=== PATIENT | female | born 1950 | race Caucasian/White ===

== ENCOUNTER 2019-10-02 11:13 | Outpatient (CLI) | payer MEDICARE, SELFPAY ==
--- NOTE | 2019-10-02 11:21 | MM_ITS ---
WS: [id number] BILATERAL DIGITAL SCREENING MAMMOGRAM WITH CAD CLINICAL INFORMATION: SCREENING HISTORY: Screening mammogram. No current complaints. COMPARISON: July 08, 2017 TECHNIQUE: Bilateral CC and MLO views. FINDINGS: Fatty-replaced breasts bilaterally. No suspicious focal mass, asymmetry, calcifications, or net developer architect ural distortion. No evidence of malignancy. MM/[id number] IMPRESSION: BI-RADS: 1-Negative FOLLOW UP: 1 Year Follow-up Recommend return to annual screening mammography.
== END 2019-10-02 11:14 | disposition home or self-care (01) ==
PROVIDERS: PCP Nurse Practitioner Family; Visit Provider Nurse Practitioner Family
DX: Z12.31 Encounter for screening mammogram for malignant neoplasm of breast (principal)
CPT/HCPCS: 77067

== ENCOUNTER 2019-12-05 14:11 | Outpatient (CLI) | payer MEDICARE, SELFPAY ==
--- NOTE | 2019-12-05 14:22 | XR_ITS ---
WS: [id number] EXAM: LEFT KNEE: 3 VIEWS WEIGHTBEARING DATE OF EXAMINATION: 12/05/2019, 1433 hour COMPARISON: None. HISTORY: Patient is 69 years old with knee pain. Knee keeps giving out while walking or pivoting. FINDINGS: Overall bone density is decreased. There are minimal changes of arthritis within the knee joint. No a ppreciable joint effusion is seen. Slight arterial calcified plaque changes seen posteriorly. Extra a rticular soft tissues otherwise unremarkable. If there is concern for internal derangement MRI is juan ging modality of choice for further evaluation if clinically needed. XR/XR knee LT 3V* [id number] IMPRESSION: Decreased bone density. Minimal degenerative changes. No acute bony abnormality . See body of the report.
== END 2019-12-05 14:12 | disposition home or self-care (01) ==
LOC: RAD 14:18
PROVIDERS: PCP Nurse Practitioner Family; Visit Provider Nurse Practitioner Family
DX: M25.562 Pain in left knee (principal); R26.2 Difficulty in walking, not elsewhere classified
CPT/HCPCS: 73562

== ENCOUNTER 2019-12-12 13:19 | Outpatient (CLI) | payer MEDICARE, SELFPAY ==
--- NOTE | 2019-12-12 13:25 | MR_ITS ---
WS: [id number] MRI LEFT KNEE HISTORY: LEFT KNEE PAIN;INSTABILITY LEFT KNEE JOINT COMPARISON: 12/05/2019 Anterior cruciate ligament: Intact. Posterior cruciate ligament: Intact. Medial collateral ligament: Very small amount of fluid and increased T2 signal surrounding the MCL. T here is a partial tear involving the proximal tibial collateral ligament Posterior lateral corner structures: Intact. Medial menisci: Intrasubstance degeneration in the posterior horn but no extension to an articular petit rface. Lateral meniscus: Complex tear in the posterior horn. Abnormal signal and shape of the meniscus as it extends towards the meniscal root. There is increased signal in the blunting of the free edge and in the body of the meniscus. Anterior horn is normal. Extensor mechanism: Distal quadriceps tendon and patellar tendons are intact. Fluid and soft tissue: There is a small amount of fluid in the suprapatellar joint space. Small Junior 's cyst. Osseous and articular structures: Patellofemoral compartment: Subchondral cystic changes in the posterior patella. Osteochondral defect extends over a width of 11 mm. Medial compartment: Thinning of the cartilage. Full thickness cartilage defect measures 3 mm involvin g the femoral condyle. Lateral compartment: Mild narrowing of the joint space. Mild thinning of the cartilage. There is abno rmal signal involving the tibial plateau surface. Abnormal signal in the cartilage and extends over a width of 10 mm. This is at the same level as the abnormal signal in the posterior horn of the menisc us. MR/MR knee LT wo con* [id number] IMPRESSION: 1. Complex tear posterior horn lateral meniscus. 2. Partial tear proximal medial collateral ligament. 3. Osteochondral lesion posterior lateral surface of the patella measures 11 m m. 4. Mild narrowing of the medial and lateral compartments of the knee with mild internal derangement. 5. 3 mm cartilage defect medial femoral condyle. 6. 10 mm cartilage defect lateral tibial plateau. This corresponds to the leve l of the meniscal tear. 7. Small Junior's cyst.
== END 2019-12-12 13:20 | disposition home or self-care (01) ==
LOC: RADSHAW 13:23
PROVIDERS: PCP Nurse Practitioner Family; Visit Provider Nurse Practitioner Family
DX: M25.362 Other instability, left knee (principal); M25.562 Pain in left knee; S83.272A Complex tear of lateral meniscus, current injury, left knee, initial encounter; S83.412A Sprain of medial collateral ligament of left knee, initial encounter; M71.22 Synovial cyst of popliteal space [Baker], left knee; X58.XXXA Exposure to other specified factors, initial encounter
CPT/HCPCS: 73721

== ENCOUNTER → 2020-01-21 13:04 | Outpatient (BNVA) | payer MEDICARE, SELFPAY | PROVIDERS: PCP Nurse Practitioner Family; Visit Provider Orthopaedic Surgery | DX: Z20.828 Contact with and (suspected) exposure to other viral communicable diseases (principal) | CPT/HCPCS: 87635 ==

== ENCOUNTER 2020-01-24 07:22 | Day surgery (SDC) | payer MEDICARE, SELFPAY ==
[2020-01-23 09:47] VITALS: BMI 31.0
[2020-01-24] VITALS (11 sets, daily range): BP systolic 103–165; BP diastolic 52–86; PULSE 59–69; RESP 12–20; TEMP 36.3–36.9; O2SAT 94–98
[2020-01-24] MEDS: sodium chloride 0.9% 1,000 ML 30 ML IV (08:14)
--- NOTE | 2020-01-24 08:17 | ANES.PREANE2 ---
Pre-Anesthetic Assessment Pre-Anesthetic Assessment: Height/Weight: Height 1.73 m Weight 92.533 kg Temp Pulse Resp BP Pulse Ox 98.1 F 65 20 H 135/66 97 01/24/20 07:46 01/24/20 07:46 01/24/20 07:46 01/24/20 07:46 01/24/20 07:46 Preop Diagnosis: Left lateral meniscal Proposed Procedure: Operation Date: 01/24/20 08:55 Proposed Procedures p Knee Arthroscopy left w/lateral meniscectomy 30193 S8.207A(Left) - Jarett Barba MD Familial anesthetic complications: None Was Beta Tamir taken within 24 hours: Yes Last intake: Intake Last Liquid Date 01/23/20 Last Liquid Time 22:00 Last Solid Date 01/23/20 Last Solid Time 20:00 Social: Social History: Tobacco Exam: Pre-Anes Outpt Exam: alert, oriented x 3, clear to auscultation bilaterally and regular rate & rhythm Airway: Cervical ROM: WNL MP: 3 Dentition: Other (bridge) Pulmonary: Pulmonary: Cough (dry smoker's cough chronic) CV/HEM: CV/HEM: HTN Metabolic: Metabolic: Hyperlipidemia Anesthetic Plan: ASA status: 2 Anesthesia: General Risk of > 500 ml blood loss (7ml/kg in children): No Meds/Allergies Current Medications: Current Medications Generic Name Dose Route Start Last Admin Trade Name Freq PRN Reason Stop Dose Admin Sodium Chloride 1,000 mls @ 30 ml s/hr 01/24/20 07:45 01/24/20 08:14 Sodium Chloride 0.9% IV 01/25/20 07:44 30 mls/hr .Q24H YEIMI Administration PFSH Anesthesia PFSH: Social History Smoking and tobacco status: current some day smoker Alcohol intake: never Data Anesthesia Cardiac Studies: No Data to Display
--- NOTE | 2020-01-24 08:37 | W.PM.OPSUD ---
Surgery/Procedure H&P Update DATE OF PROCEDURE: January 24, 2020 DATE H&P PERFORMED: 01/02/20 PREOP DIAGNOSIS: Left lateral meniscal PLANNED PROCEDURE: Operation Date: 01/24/20 08:55 Proposed Procedures p Knee Arthroscopy left w/lateral meniscectomy 44963 S8.207A(Left) - Jarett Barba MD
[2020-01-24] MEDS: morphine 4 mg/mL SDV 1 mL 8 MG XX (09:09)
--- NOTE | 2020-01-24 09:48 | PM.OP ---
Operative Report Date of procedure: January 24, 2020 Pre-op Diagnosis: Left lateral meniscal Post-op diagnosis: other (Left lateral meniscal tear, chondromalacia medial femoral condyle, chondromalacia patella) Post-op Findings: As above Procedure Done: Arthroscopic left lateral meniscectomy, arthroscopic chondroplasty medial femoral condyle and patella Pathology: none sent Surgeon: Jarett Barba Anesthesia: General Complications: None Findings: Patient has a complex flap tear in the posterior third of the lateral meniscus involving approximately the central 30%. The remaining 70% seemed reasonably healthy. There was an area of full-thickness cartilage loss over the weightbearing medial femoral condyle approximately a 12 mm in diameter with exposed subchondral bone. There is central cartilaginous flaps about the patella involving perhaps a 60% of the thickness of the central patellar cartilage. The trochlea was otherwise healthy Condition: stable Disposition: PACU Procedure: The patient was taken to the operating room and given a general anesthesia. Her leg was prepped with Betadine and the knee infiltrated 30 cc of 0.5% Marcaine with epi and 10 mg of morphine. The leg was then draped in the usual fashion. A timeout was performed. The knee was then entered through the standard inferior medial and inferior lateral portal. The diagnostic portion arthroscopy was performed. Initial attention was focused on the unstable lateral meniscal tear. Utilizing an incisor shaver a large unstable central flap was debrided back. Remaining poor quality degenerative tissue was debrided with a basket. There with the rim was then cleaned up with an incisor shaver and [employer]gg [employer] Nephew Werewolf probe leaving approximately 60 to 70% of a stable meniscal rim behind. The remainder of arthroscopy in the lateral compartment was unremarkable. Attention was then focused to the medial compartment. The area of exposed subchondral bone was identified. Unstable peripheral flaps were identified circumferentially. Utilizing an incisor shaver the rim was clean debrided back to a stable rim and then cleaned up with the Gregg [employer] Nephew Werewolf probe. Central area of approximately 12 mm in diameter remain. Final attention was focused on the undersurface the patella. Initially working with the shaver and Gregg [employer] Nephew Werewolf through the medial portal unstable flaps and fissures of the central patella were debrided back. The scope was then moved to the medial portal and working through the lateral portal additional debridement accomplished. No exposed subchondral bone was identified. The knee was irrigated with saline. Portals were closed with 3-0 Prolene. Sterile dressings were applied the patient is wrapped in Paxton wrap from toe to thigh. She was extubated and taken to recovery in stable condition.
[2020-01-24] MEDS: fentaNYL 50 mcg/mL INJ 2mL IVP (10:10)
--- NOTE | 2020-01-24 10:24 | SUR.PHASEI ---
1000 PT HAS SENSATION/MOVEMENT TO L. FOOT, PEDAL PULSE PALPATED, CAP REFILL <3
--- NOTE | 2020-01-24 10:50 | ANE.PACU2 ---
Inpatient post-anesthesia follow up: Airway intact: Yes Vital signs: Temperature 97.4 F Pulse Rate 66 Respiratory Rate 16 Blood Pressure 133/76 Pulse Oximetry 94 Oxygen Delivery Me thod Room Air Oxygen Flow Rate 8 Fraction of Inspir ed Oxygen Hydration adequate: Yes Nausea and vomiting: No Pain level: 3 Mental status: Baseline
== END 2020-01-24 10:55 | disposition home or self-care (01) ==
PROVIDERS: PCP Nurse Practitioner Family; Visit Provider Orthopaedic Surgery
PROC: (CPT 29870; principal; 2020-01-24 08:55)
DX: S83.282A Other tear of lateral meniscus, current injury, left knee, initial encounter (principal); W19.XXXA Unspecified fall, initial encounter; F17.210 Nicotine dependence, cigarettes, uncomplicated; I10 Essential (primary) hypertension; E78.5 Hyperlipidemia, unspecified
CPT/HCPCS: 29881; 12345; J0690; J1100; J1885; J2270; J2405; J2704; J3010; J3490; J7030

== ENCOUNTER 2020-11-12 11:42 | Outpatient (CLI) | payer MEDICARE, SELFPAY ==
--- NOTE | 2020-11-12 11:49 | MM_ITS ---
WS: [id number] BILATERAL DIGITAL SCREENING MAMMOGRAPHY WITH CAD CLINICAL INFORMATION: SCREENING HISTORY: Screening mammogram. No current complaints. COMPARISON: October 02, 2019 TECHNIQUE: Bilateral CC and MLO views. FINDINGS: Scattered fibroglandular densities bilaterally. No suspicious focal mass, asymmetry, calcifications, or architectural distortion. No evidence of malignancy. MM/[id number] IMPRESSION: BI-RADS: 1-Negative FOLLOW UP: 1 Year Follow-up Recommend return to annual screening mammography.
== END 2020-11-12 11:43 | disposition home or self-care (01) ==
LOC: RADSHAW 11:47
PROVIDERS: PCP Nurse Practitioner Family; Visit Provider Nurse Practitioner Family
DX: Z12.31 Encounter for screening mammogram for malignant neoplasm of breast (principal)
CPT/HCPCS: 77067

== ENCOUNTER 2021-04-17 10:52 | Outpatient (CLI) | payer MEDICARE, SELFPAY ==
[2021-04-17 11:31] VITALS: BP 132/74; PULSE 77; RESP 18; TEMP 37.5; O2SAT 97; BMI 30.1
[2021-04-17 12:21] VITALS: BP 110/67; PULSE 81; RESP 16; TEMP 36.9; O2SAT 96
[2021-04-17 13:21] VITALS: BP 119/72; PULSE 70; RESP 16; TEMP 36.3; O2SAT 96
== END 2021-04-17 10:53 | disposition home or self-care (01) ==
LOC: OPS 10:56
PROVIDERS: PCP Nurse Practitioner Family; Visit Provider Nurse Practitioner Family
DX: U07.1 COVID-19 (principal)
CPT/HCPCS: 96365

== ENCOUNTER → 2022-03-04 11:34 | Outpatient (BNVA) | payer MEDICARE, SELFPAY | PROVIDERS: PCP Nurse Practitioner Family; Visit Provider Nurse Practitioner Family | DX: M25.531 Pain in right wrist (principal) | CPT/HCPCS: 73110 ==

== ENCOUNTER 2022-04-26 01:12 | Emergency (ER) | payer MEDICARE, SELFPAY ==
[2022-04-26 01:26] VITALS: BP 140/81; PULSE 76; RESP 16; TEMP 36.4; O2SAT 94; BMI 29.5
--- NOTE | 2022-04-26 02:20 | XRR_ITS ---
PROCEDURE INFORMATION: Exam: XR Left Hand Exam date and time: 04/26/2022 2:48 AM Age: 72 years old Clinical indication: Injury or trauma; Fall; Blunt trauma (contusions or hematomas); Hand; Left; Additional info: Fall, injury, swelling, bruising TECHNIQUE: Imaging protocol: Radiologic exam of the Left hand. Views: 3 or more views. Frontal Oblique Lateral COMPARISON: No relevant prior studies available. FINDINGS: Bones/joints: Comminuted left 5th/little metacarpal base fracture is seen without significant displacement. There is osteopenia. Moderate digit and thumb interphalangeal joint and thumb metacarpophalangeal joint space narrowing is seen with small osteophytes, consistent with osteoarthritic change. Some subchondral lucencies are seen. Mild carpometacarpal and remaining metacarpophalangeal joint space narrowing is seen, suggestive of osteoarthritic change. No osseous erosive changes. Soft tissues: No radiopaque foreign bodies. Mild lower hand region soft tissue swelling. Notes: Followup radiographs may be obtained for complete assessment. XR/XR hand LT min 3V* [id number] IMPRESSION: Comminuted, nondisplaced left 5th/little metacarpal base fracture, as noted above.
[2022-04-26 02:28] LABS: Basophils # 0.1 10^3/uL (0.0-0.1); Basophils % 0.4 %; Eosinophils # 0.2 10^3/uL (0.0-0.8); Eosinophils % 0.9 %; Hematocrit 46.4 % (37.0-47.0); Hemoglobin 15.7 g/dL (11.5-15.3); Lymphocytes # 1.3 10^3/uL (0.8-4.8); Lymphocytes % 8.1 %; Mean Corpuscular HGB Conc 33.8 g/dL (30.0-36.0); Mean Corpuscular Hemoglobin 31.7 pg (28.0-34.0); Mean Corpuscular Volume 93.7 fl (81-99); Mean Platelet Volume 9.7 fL (7.4-10.4); Monocytes # 0.9 10^3/uL (0.2-0.9); Monocytes % 5.9 %; Neutrophils # 13.51 10^3/uL (1.8-7.7); Neutrophils % 84.4 %; Nucleated Red Blood Cells % 0 %; Platelet Count 196 10^3/cmm (130-400); Red Blood Count 4.95 10^6/uL (4.1-5.3); Red Cell Distribution Width 12.5 % (12.1-15.1)
--- NOTE | 2022-04-26 02:29 | W.ED.SYNCOPE ---
HPI - Syncope General: Chief Complaint: Syncope Stated Complaint: SYNCOPE/FALL Time Seen by Provider: 04/26/22 01:25 Source: patient Mode of arrival: EMS Limitations: no limitations History of Present Illness: Patient presents to the emergency department today accompanied by her for evaluation treatment of various issues. Patient states that this evening she began having an upset stomach and indicated she had a large episode of diarrhea. She states she went to bed but approximately 1 hour later noticed her stomach was again starting to feel upset and went to the bathroom. She states she had another episode of diarrhea there and started feel nauseated like she was going to vomit. She states she got up and was walking out of her bathroom when she had a syncopal episode, falling forward, and impacting her forehead on the hardwood floor. Patient states that she came to but states she felt so poorly that she did not even try to get up and had an episode of vomiting on the floor. Patient denies eating anything different. She did take some of her medications slightly differently-at different times than normal, tonight. No other similarly ill at home. Patient also complains of some left hand pain from falling. Patient is not on a blood thinner. She has not had any blurred vision. She denies any epistaxis from her fall. She indicates tenderness of her forehead but no significant headache. Associated symptoms: Reports nausea; Deny abdominal pain or headache(s) (forehead contusion) Review of Systems General: Reports: 10 or more systems reviewed and unremarkable except in HPI and below GI: Reports: nausea, vomiting, diarrhea and GI cramping; Denies: abdominal pain Neuro: Reports: other (syncope x1); Denies: headache(s) (forehead contusion), numbness in extremities, weakness in extremities or Slurred speech present [facility] PFSH: Social History Smoking and tobacco status: current some day smoker Alcohol intake: never Physical Exam Const: COMMON NORMALS: no acute distress, patient oriented x3 and alert HENMT: COMMON NORMALS: normocephalic, hearing grossly normal bilaterally, Normal external nose present (no epistaxis) and moist oral mucous membranes; head/scalp not atraumatic (forehead contusion with mild erythema. No swelling, no hematoma, no lac) HEAD & SCALP: normocephalic; not atraumatic (forehead contusion with mild erythema. No swelling, no hematoma, no lac) NOSE: Normal external nose present (no epistaxis) Eye: COMMON NORMALS: Equal, round and reactive pupils present, EOMs intact bilaterally and conjunctivae normal CONJUNCTIVA: Yes conjunctivae normal PUPIL: Yes Equal, round and reactive pupils present Neck/C-Spine: COMMON NORMALS: full ROM and no JVD Lymph: LYMPHATIC: no lymphadenopathy noted Resp: COMMON NORMALS: normal respiratory effort, No retractions, No use of accessory muscles and clear to auscultation bilaterally AUSCULTATION: clear to auscultation bilaterally Cardio: COMMON NORMALS: no JVD, regular rate and regular rhythm RATE: regular rate RHYTHM: regular rhythm GI: OTHER: Hyperactive bowel sounds in all 4 quadrants. Abdomen is soft without rigidity, guarding, or specific area of tenderness. : COMMON NORMALS: Yes no CVA tenderness BLADDER/KIDNEY EXAM: Yes no CVA tenderness Back/Pelvis: COMMON NORMALS: no CVA tenderness, no thoracic nor lumbar tenderness and thoraco-lumbar ROM normal Extremity: COMMON NORMALS: normal to inspection, full ROM and capillary refill normal NARRATIVE EXTREMITY EXAM: Patient has an area of bruising and swelling noted to the left medial dorsum of the hand. It is tender to palpation. Patient demonstrates flexion extension of all the fingers on the left hand. Neuro: COMMON NORMALS: patient oriented x3 SENSORIUM/ORIENTATION: Yes alert Psych: COMMON NORMALS: mental status grossly normal, Normal thought process present, cooperative, normal affect and activity/motor behavior normal THOUGHT PROCESS: Normal thought process present Skin: COMMON NORMALS: no rashes or lesions noted and no wounds GENERAL SKIN EXAM: no rashes or lesions noted Course Vital Signs: Vital signs: Vital Signs Temperature 97.6 F 04/26/22 01:26 Pulse Rate 78 04/26/22 03:02 Respiratory Rate 17 04/26/22 03:02 Blood Pressure 153/76 04/26/22 03:02 Pulse Oximetry 95 04/26/22 03:02 Oxygen Delivery Me thod 04/26/22 01:26 MDM - Syncope Medical Decision Making Patient presents via EMS for episode of syncope after diarrhea x2 this evening. Patient has no specific abdominal pains and has no signs of any acute abdomen. Patient had nausea with the sensation to need to vomit prior to syncope and hitting her head. Patient admitted she went ahead and vomited on the floor after she had fallen because she felt too poorly to get up. Patient has no acute neurological deficits from hitting her head. Syncopal episode was prior to her hitting her head. Patient's hand does show bruising and swelling with an x-ray that appears to have a proximal fifth metacarpal fracture. Patient has a minimally elevated lipase and a slightly elevated white blood cell count but, could be secondary to her episode of vomiting. Urinalysis was also otherwise unremarkable-all imaging and lab work reviewed by Dr. Guardado who agreed with hydration here in the ER and at home treatment with Bentyl and Zofran, patient can discharge for continued fluid hydration at home. Patient also needs follow-up with orthopedics for the hand fracture which a request to case management was initiated tonight as well. Patient was given instructions for fluid and diet for the next few days. Patient was given strict return precautions for concerns of dehydration or change or worsening of abdominal pains or, any recurrence of syncopal episodes. Differential Diagnosis Likely syncope due to orthostatic hypotension, vasovagal syncope and dehydration Lab Data 04/26/22 02:23 04/26/22 02:23 Radiology Impressions Hand X-Ray 04/26/22 02:20 IMPRESSION: Comminuted, nondisplaced left 5th/little metacarpal base fracture, as noted above. Laboratory Results WBC 16.0 10^3/uL (4.0-10.0) H 04/26/22 02:23 RBC 4.95 10^6/uL (4.1-5.3) 04/26/22 02:23 Hgb 15.7 g/dL (11.5-15.3) H 04/26/22 02:23 Hct 46.4 % (37.0-47.0) 04/26/22 02:23 MCV 93.7 fl (81-99) 04/26/22 02: MCH 31.7 pg (28.0-34.0) 04/26/22 02: MCHC 33.8 g/dL (30.0-36.0) 04/26/22 02: RDW 12.5 % (12.1-15.1) 04/26/22 02:23 Plt Count 196 10^3/cmm (130-400) 04/26/22 02: MPV 9.7 fL (7.4-10.4) 04/26/22 02: Neut % (Auto) 84.4 % 04/26/22 02:23 Lymph % (Auto) 8.1 % 04/26/22 02:23 Kleberg % (Auto) 5.9 % 04/26/22 02:23 Eos % (Auto) 0.9 % 04/26/22 02:23 Baso % (Auto) 0.4 % 04/26/22 02:23 Neut # (Auto) 13.51 10^3/uL (1.8-7.7) H 04/26/22 02: Lymph # (Auto) 1.3 10^3/uL (0.8-4.8) 04/26/22 02:23 Kleberg # (Auto) 0.9 10^3/uL (0.2-0.9) 04/26/22 02:23 Eos # (Auto) 0.2 10^3/uL (0.0-0.8) 04/26/22 02:23 Baso # (Auto) 0.1 10^3/uL (0.0-0.1) 04/26/22 02:23 Nucleated RBC % (auto) 0 % 04/26/22 02: Nucleated RBCs # 0.0 /100WBC 04/26/22 02:23 Sodium 134 mmol/L (136-145) L 04/26/22 02:23 Potassium 3.8 mmol/L (3.5-5.1) 04/26/22 02:23 Chloride 98 mmol/L (98-107) 04/26/22 02:23 Carbon Dioxide 25 mmol/L (22-29) 04/26/22 02:23 Anion Gap 14.8 (5-19) 04/26/22 02:23 BUN 16 mg/dL (8-23) 04/26/22 02:23 Creatinine 0.6 mg/dL (0.5-0.9) 04/26/22 02:23 GFR Calculation 98.8 mL/min (90-130) 04/26/22 02:23 Glucose 132 mg/dL (65-115) H 04/26/22 02:23 Calculated Osmolality 281 mOsm/kg (285-295) L 04/26/22 02:23 Calcium 9.0 mg/dL (8.5-10.5) 04/26/22 02:23 Total Bilirubin 0.7 mg/dL (0.15-1.2) 04/26/22 02:23 AST 11 U/L (0-32) 04/26/22 02:23 ALT 9 U/L (0-33) 04/26/22 02:23 Alkaline Phosphatase 78 U/L (35-105) 04/26/22 02:23 Total Protein 7.0 g/dL (6.6-8.7) 04/26/22 02:23 Albumin 4.4 g/dL (3.5-5.2) 04/26/22 02:23 Globulin 2.6 g/dL (1.3-4.6) 04/26/22 02:23 Lipase 90 U/L (13-60) H 04/26/22 02:23 Urine Color Yellow (Yellow) 04/26/22 03:23 Urine Appearance Clear (CLEAR) 04/26/22 03:23 Urine pH 5 (5-7) 04/26/22 03:23 Ur Specific [place] 1.015 (1.005-1.030) 04/26/22 03:23 Urine Protein Neg (Negative) 04/26/22 03:23 Urine Glucose (UA) Norm (Normal) 04/26/22 03:23 Urine Ketones Negative (Negative) 04/26/22 03:23 Urine Blood 2+ (Negative) H 04/26/22 03:23 Urine Nitrate Negative (Negative) 04/26/22 03:23 Urine Bilirubin Neg (Negative) 04/26/22 03:23 Urine Urobilinogen Neg mg/dL (Negative) 04/26/22 03:23 Ur Leukocyte Esterase Negative (Negative) 04/26/22 03:23 Urine RBC 0-4 /hpf (0-2) H 04/26/22 03:23 Urine WBC 0-4 /hpf (0-5) H 04/26/22 03:23 Ur Squamous Epith Cells 0-4 /hpf (0-5) H 04/26/22 03:23 Amorphous Sediment Not Reportable 04/26/22 03:23 Urine Bacteria Trace /hpf (NONE) 04/26/22 03:23 Hyaline Casts 0-4 /lpf H 04/26/22 03:23 Urine Mucus 1+ /hpf 04/26/22 03:23 Discharge Plan Discharge Patient Disposition: Home Clinical Impression: Syncope, vasovagal, Diarrhea, Contusion of forehead, Fracture of metacarpal base of left hand, closed, Vomiting Condition: Stable Prescriptions: New ondansetron 4 mg tablet,disintegrating 4 mg PO Q8H 5 Days Qty: 15 0RF dicyclomine 10 mg capsule 10 mg PO TID Qty: 14 0RF No Action metoprolol tartrate 25 mg tablet 12.5 mg PO BID simvastatin 20 mg tablet 20 mg PO DAILY citalopram [Celexa] 20 mg Tablet 20 mg PO DAILY lisinopril-hydrochlorothiazide 20-25 mg Tablet 1 tab PO DAILY oxycodone 5 mg tablet 5 mg PO Q4H PRN (Reason: pain) Qty: 30 0RF Tylenol Allergy Cmp Mult-Sx NT 2-25-30-500 mg Tablet PO Discharge Orders: Discharge ED (Routine); Ordered 04/26/22 Ordered By: Merry Sherman Referrals: Mayda Bledsoe FNP [Primary Care Provider] - Discharge Diet: Advance as tolerated Discharge Activity: Limit activity as instructed Patient Instructions: Hand Fracture (ED), Syncope (ED), Concussion (ED), Head Injury (ED), Gastroenteritis (ED) Activity Restrictions/Additional Instructions: Lab work today revealed no acute concerns. We believe your episode of syncope is due to a vasovagal effect after having had diarrhea. Your neurological examination is intact but we do recommend close monitoring for any severe headache, change or blurry vision, mental confusion, or slurred/confused speech. If any of these occur you need to be seen and reevaluated for potential concussion or worsening head injury. You did sustain a fracture to the base of your fifth metacarpal bone on your left hand. While there are several pieces to this fracture, they are still well aligned and do not appear displaced. We have put you into a splint which you need to wear at all times. Have also initiated a referral to orthopedics on your behalf for follow-up as you will need to continue to be monitored as this injury heals. We are providing you antinausea medication as well as medication to help with abdominal cramps and diarrhea. I recommend sticking to a clear liquid diet for the next 24 to 48 hours before advancing your diet as tolerated. I recommend the brat diet-bananas, rice, applesauce, and toast when you decide to try solid foods. Jose important to drink water, you can supplement with clear liquids that contain electrolytes or a little bit of sugar throughout the day as well. If for any reason you acutely worsen either by concerns of symptoms of head injury, worsening or change of abdominal pains, continued vomiting or diarrhea causing concerns for dehydration or sudden fever, you should be seen and reevaluated again. Coding Level of Care Code ED Instructional Design Manager for Chg Fwd Exam Comprehensive
[2022-04-26] MEDS: dicyclomine 20 mg Tablet PO (02:35)
[2022-04-26] MEDS: ondansetron 2 mg/ML SDV 2 mL 4 MG IVP (02:36)
[2022-04-26] MEDS: sodium chloride 0.9% 1,000 ML 999 ML IV (02:36)
[2022-04-26 02:44] LABS: Alanine Aminotransferase 9 U/L (0-33); Albumin Level 4.4 g/dL (3.5-5.2); Alkaline Phosphatase 78 U/L (35-105); Anion Gap 14.8 (5-19); Aspartate Amino Transferase 11 U/L (0-32); Blood Urea Nitrogen 16 mg/dL (8-23); Carbon Dioxide 25 mmol/L (22-29); Chloride 98 mmol/L (98-107); Globulin 2.6 g/dL (1.3-4.6); Glomerular Filtration Rate 98.8 mL/min (90-130); Glucose 132 mg/dL (65-115); Lipase 90 U/L (13-60); Osmolality Calculated 281 mOsm/kg (285-295); Potassium 3.8 mmol/L (3.5-5.1); Sodium 134 mmol/L (136-145); Total Bilirubin 0.7 mg/dL (0.15-1.2)
[2022-04-26 03:02] VITALS: BP 153/76; PULSE 78; RESP 17; O2SAT 95
[2022-04-26 03:47] LABS: Add Urine Microscopic? YES; Bilirubin Urine Neg (Negative); Blood Urine 2+ (Negative); Glucose Urine UA Norm (Normal); Ketones Urine Negative (Negative); Leukocyte Esterase Urine Negative (Negative); Nitrate Urine Negative (Negative); Protein Urine Neg (Negative); Specific Gravity, Urine 1.015 (1.005-1.030); Urine Appearance Clear (CLEAR); Urine Color Yellow (Yellow); Urobilinogen Urine Neg (Negative); pH Urine 5 (5-7)
[2022-04-26 04:03] LABS: RBC Urine 0-4 /hpf (0-2); Squamous Epithelial Cell Urine 0-4 /hpf (0-5); WBC Urine 0-4 /hpf (0-5)
[2022-04-26 04:04] LABS: Add Urine Culture? No; Bacteria Urine TRACE /hpf; Hyaline Casts Urine 0-4 /lpf; Mucus Urine 1+ /hpf
[2022-04-26 04:26] VITALS: BP 147/65; PULSE 82; RESP 14; O2SAT 96
--- NOTE | 2022-04-26 09:11 | DCPLANNER ---
Addendum entered by Ale Sarmiento 04/29/22 13:37: Patient had a follow up appointment scheduled with ortho - patient did attend appointment. Addendum entered by Ale Sarmiento 04/27/22 10:30: Patient has a follow up appointment scheduled for April at 11:[address] Montilla at ortho. Clinic will call patient with appointment information. Original Note: real estate sales manager had message to schedule a follow up appointment for patient with ortho. real estate sales manager sent patients information to the front office staff at ortho. Patients information will be printed and reviewed. Clinic will call patient with appointment information.
== END 2022-04-26 04:30 | disposition home or self-care (01) ==
PROVIDERS: Emergency Provider Physician Assistant; PCP Nurse Practitioner Family
DX: R55 Syncope and collapse (principal); R19.7 Diarrhea, unspecified; R11.11 Vomiting without nausea; S00.83XA Contusion of other part of head, initial encounter; S62.347A Nondisplaced fracture of base of fifth metacarpal bone, left hand, initial encounter for closed fracture; F17.210 Nicotine dependence, cigarettes, uncomplicated; W18.30XA Fall on same level, unspecified, initial encounter
CPT/HCPCS: 73130; 80053; 81001; 83690; 85025; 96361; 96374; 99284; J2405; J7030

== ENCOUNTER → 2022-04-29 11:06 | Outpatient (BNVA) | payer MEDICARE, SELFPAY | PROVIDERS: PCP Nurse Practitioner Family; Referring Provider Physician Assistant; Visit Provider Student in an Organized Health Care Education/Training Program | DX: S62.317A Displaced fracture of base of fifth metacarpal bone, left hand, initial encounter for closed fracture (principal); W19.XXXA Unspecified fall, initial encounter | CPT/HCPCS: 73130 ==

== ENCOUNTER 2022-04-29 15:00 | Outpatient (CLI) | payer MEDICARE, SELFPAY | END 2022-04-29 15:01 | disposition home or self-care (01) | LOC: SPT 15:01 | PROVIDERS: PCP Nurse Practitioner Family; Visit Provider Student in an Organized Health Care Education/Training Program | DX: Z46.89 Encounter for fitting and adjustment of other specified devices (principal); S62.317D Displaced fracture of base of fifth metacarpal bone, left hand, subsequent encounter for fracture with routine healing; X58.XXXD Exposure to other specified factors, subsequent encounter | CPT/HCPCS: 26600; 97760; 99204; L3984 ==

== ENCOUNTER → 2022-05-27 10:12 | Outpatient (BNVA) | payer MEDICARE, SELFPAY | PROVIDERS: PCP Nurse Practitioner Family; Visit Provider Student in an Organized Health Care Education/Training Program | DX: S62.317A Displaced fracture of base of fifth metacarpal bone, left hand, initial encounter for closed fracture (principal); X58.XXXA Exposure to other specified factors, initial encounter | CPT/HCPCS: 73130 ==

== ENCOUNTER 2022-05-27 11:22 | Outpatient (CLI) | payer MEDICARE, SELFPAY | END 2022-05-27 11:23 | disposition home or self-care (01) | LOC: SPT 11:23 | PROVIDERS: PCP Nurse Practitioner Family; Visit Provider Student in an Organized Health Care Education/Training Program | DX: Z46.89 Encounter for fitting and adjustment of other specified devices (principal); S62.319D Displaced fracture of base of unspecified metacarpal bone, subsequent encounter for fracture with routine healing; X58.XXXD Exposure to other specified factors, subsequent encounter | CPT/HCPCS: 97760; 99213; L3908 ==

== ENCOUNTER 2022-05-28 06:00 | Outpatient (RCR) | payer MEDICARE, SELFPAY | END 2022-06-15 23:59 | disposition home or self-care (01) | LOC: TOT 06:00 | PROVIDERS: PCP Nurse Practitioner Family; Visit Provider Student in an Organized Health Care Education/Training Program | DX: S62.307D Unspecified fracture of fifth metacarpal bone, left hand, subsequent encounter for fracture with routine healing (principal); X58.XXXD Exposure to other specified factors, subsequent encounter | CPT/HCPCS: 97165 ==

== ENCOUNTER 2022-06-23 12:37 | Outpatient (CLI) | payer MEDICARE, SELFPAY ==
--- NOTE | 2022-06-23 12:55 | CT_ITS ---
WS: [id number] CT ABDOMEN PELVIS TECHNIQUE: Noncontrast CT of the abdomen and contrast-enhanced CT of the abdomen and pelvis with rowdy nal and sagittal reformatted images with delayed imaging. CLINICAL INFORMATION: HEMATURIA COMPARISON: None. DLP: 2484.[address] scans at [facility] use at least one of these dose optimization techniques: automated e xposure control; mA and/or kV adjustment per patient size (includes targeted exams where dose is matc hed to clinical indication); or iterative reconstruction. FINDINGS: No hydronephrosis in either kidney. No obstructing renal or ureteral calculi. Normal excretion on the delayed images. Normal renal parenchymal enhancement. Pelvic phleboliths. Small LEFT renal cysts the largest measuring 10 mm. Diffuse fatty infiltration liver. Multiple hepatic cysts the largest in LEF T hepatic lobe anteriorly measuring 4.7 x 3.7 cm. Normal portal vein and splenic vein. Normal pancrea tic parenchymal enhancement. Splenic artery calcification. Normal spleen. Normal GE junction. Lung ba ses are well aerated. Adrenal glands are normal. Normal caliber abdominal aorta. Celiac and SMA are p atent. Aortic calcification. Normal gallbladder. No evidence of high-grade small or large bowel obstruction. Normal sigmoid colon. Disc space narrowin g worse at L3-L4 and L4-L5. CT/CT abdomen pelvis wo/w [id number] IMPRESSION: 1. No hydronephrosis in either kidney. No obstructing renal or ureteral calcul i. 2. Normal renal parenchymal enhancement. A few small LEFT renal cysts largest measuring 10 mm. 3. Incidental hepatic cysts the largest in the LEFT hepatic lobe measuring 4.7 x 3.7 CM. 4. Hepatomegaly with mild diffuse fatty infiltration liver. 5. No other acute findings.
[2022-06-23] MEDS: iohexol 350 mg/mL 500 mL Btl (per mL) IV (13:15)
== END 2022-06-23 12:38 | disposition home or self-care (01) ==
PROVIDERS: PCP Nurse Practitioner Family; Visit Provider Nurse Practitioner Family
DX: R31.9 Hematuria, unspecified (principal); Q61.02 Congenital multiple renal cysts; K76.89 Other specified diseases of liver; R16.0 Hepatomegaly, not elsewhere classified
CPT/HCPCS: 74178; Q9967

== ENCOUNTER → 2022-06-24 11:11 | Outpatient (BNVA) | payer MEDICARE, SELFPAY | PROVIDERS: PCP Nurse Practitioner Family; Visit Provider Student in an Organized Health Care Education/Training Program | DX: S62.347D Nondisplaced fracture of base of fifth metacarpal bone, left hand, subsequent encounter for fracture with routine healing (principal); X58.XXXD Exposure to other specified factors, subsequent encounter | CPT/HCPCS: 73110; 99213 ==

== ENCOUNTER 2022-10-15 12:57 | Outpatient (CLI) | payer MEDICARE, SELFPAY ==
--- NOTE | 2022-10-15 13:02 | MM_ITS ---
WS: [id number] VIEWS: MLO and CC views both breasts. 3D digital tomosynthesis is also included in this exam. Comparison made with prior exam of 11/30/2011, 12/08/2017, 10/02/2019, 11/12/2020,. Findings: There was no sign of mass, architectural distortion or suspicious calcification in either breast. Th e breasts are almost entirely fatty MM/[place] [id number] Impression: BI-RADS: 1-Negative mammogram FOLLOW-UP: 1 Year Follow-up This mammogram was also analyzed by the Computer Aided Detection System R2 Imag e Transcript Evaluator.
--- NOTE | 2022-10-15 13:05 | XR_ITS ---
WS: [id number] DEXA (DUAL ENERGY X-RAY ABSORPTIOMETRY) Bone mineral density was performed using a [employer] machine. HISTORY: SCREENING FOR OSTEOPOROSIS COMPARISON: None available. Lumbar spine BMD (L1-L4): 1.071 g/cm2 T score: -0.9 Z score: 0.0 Total hip BMD: Left: 0.712 g/cm2. T score: -2.3 Z score: -1.4 Right: 0.713 g/cm2. T score: -2.3 Z score: -1.4 10 year probability of a major osteoporotic fracture is 24.7%. XR/XR DEXA axial skeleton* [id number] IMPRESSION: OSTEOPENIA based upon the WHO classification for females.
== END 2022-10-15 12:58 | disposition home or self-care (01) ==
PROVIDERS: PCP Nurse Practitioner Family; Visit Provider Nurse Practitioner Family
DX: Z12.31 Encounter for screening mammogram for malignant neoplasm of breast (principal); Z13.820 Encounter for screening for osteoporosis
CPT/HCPCS: 77063; 77067; 77080